=== PATIENT | male | born 1965 | race Caucasian/White ===

== ENCOUNTER 2021-02-04 21:32 | Emergency (ER) | payer OTHER ==
[~2021-02-04] VITALS: Ht 177.8 cm; Wt 109.0 kg
--- NOTE | 2021-02-04 21:37 | PHYS DOC ---
Past History Past Medical History: Bronchitis General Adult EDM: Chief Complaint: NOSEBLEED HPI: HPI: ". I got this nose bled.. it just does not want to stop...".. I ve been fighting some bronchitis. and got to coughing and then this nose bleed.. 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 Nose has been bleeding The patient follows with Dr. Carpenter. No history of previous nosebleeds. Does have a history of hypertension. Has had a recent episode of bronchitis and currently on doxycycline. Patient appears to be bleeding from the [place] area on the left nare. Patient has not had COVID vaccination. No recent travel. No specific ill contacts. Review of Systems: Review of Systems: Constitutional: Denies fever or chills Eyes: Denies change in visual acuity HENT: Denies nasal congestion or sore throat. Complains of epistaxis Respiratory: Denies cough or shortness of breath Cardiovascular: Denies chest pain or edema GI: Denies abdominal pain, nausea, vomiting, bloody stools or diarrhea : Denies dysuria Musculoskeletal: Denies back pain or joint pain Integument: Denies rash Neurologic: Denies headache, focal weakness or sensory changes Endocrine: Denies polyuria or polydipsia Lymphatic: Denies swollen glands Psychiatric: Denies depression or anxiety Family History: Family History: Noncontributory to presentation Current Medications: Current Meds: See nursing for home meds Allergies: Allergies: No known drug allergies Physical Exam: PE: Constitutional: Well developed, well nourished, no acute distress, non-toxic appearance. [] HENT: Normocephalic, atraumatic, bilateral external ears normal, oropharynx moist, blood clots back of throat, no oral exudates, nose active bleeding in left naris at the capsule back slight. Postnasal bleeding and drainage into pharynx. Eyes: PERRLA, EOMI, conjunctiva normal, no discharge. Glasses Neck: Normal range of motion, no tenderness, supple, no stridor. [] Cardiovascular:Heart rate regular rhythm, no murmur [] Lungs & Thorax: Bilateral breath sounds equal at apex auscultation [] Abdomen: Bowel sounds normal, soft, no tenderness, no masses, no pulsatile masses. [] Skin: Warm, dry, no erythema, no rash. [] Back: No tenderness, no CVA tenderness. [] Extremities: No tenderness, no cyanosis, no clubbing, ROM intact, no edema. [] Neurologic: Alert and oriented X 3, normal motor function, normal sensory funct ion, no focal deficits noted. [] Psychologic: Affect normal, judgement normal, mood normal. [] EKG: EKG: [] Radiology/Procedures: Radiology/Procedures: [] Heart Score: C/O Chest Pain: N/A Risk Factors: Risk Factors: DM, Current or recent (<one month) smoker, HTN, HLP, family history of CAD, obesity. Risk Scores: Score 0 - 3: 2.5% MACE over next 6 weeks - Discharge Home Score 4 - 6: 20.3% MACE over next 6 weeks - Admit for Clinical Observation Score 7 - 10: 72.7% MACE over next 6 weeks - Early Invasive Strategies Course & Med Decision Making: Course & Med Decision Making Pertinent Labs and Imaging studies reviewed. (See chart for details) Procedure note- right and left eft naris cleared by blowing out clots. Then application of equal mixture of Boris-Synephrine and cocaine spray to both nares. Application of bacitracin ointment to both nares. Currently appears to have adequate stasis. Will monitor for further breathing. Appear to have adequate hemostasis. Patient discharged home. Not to blow nose. May sniff. If rebleed will need nasal packing. Impression: 1. Acute Epistaxis 2. Hypertension [] Dragon Disclaimer: Lisette Disclaimer: This electronic medical record was generated, in whole or in part, using a voice recognition dictation system. Departure Departure: Referrals: PIERO CARPENTER (PCP) Lisette Disclaimer This chart was dictated in whole or in part using Voice Recognition software in a busy, high-work load, and often noisy Emergency Department environment. It may contain unintended and wholly unrecognized errors or omissions. MARGARITO CALLOWAY MD Feb 04, 2021 21:37
[2021-02-04] MEDS ORDERED: COCAINE 4% TOPICAL SOLUTION. TP ONE (22:30)
[2021-02-04] MEDS ORDERED: PHENYLEPHRINE 1% NASAL DROP 30ML BOTTLE. NS ONE (22:30)
[2021-02-04] MEDS ORDERED: cloNIDine HCL 0.1 MG TABLET PO ONE (22:30)
[2021-02-04] MEDS ORDERED: BACITRACIN ZINC TOPICAL OINT PACKET. TP ONE (22:30)
[2021-02-05 00:30] VITALS: BP 133/61
== END 2021-02-05 00:35 | disposition home or self-care (01) ==
LOC: ER 21:32
DX: R04.0 Epistaxis (principal); I10 Essential (primary) hypertension
CPT/HCPCS: 99285

== ENCOUNTER 2021-02-05 01:18 | Emergency (ER) | payer OTHER ==
[~2021-02-05] VITALS: Ht 177.8 cm; Wt 108.0 kg
--- NOTE | 2021-02-05 01:27 | PHYS DOC ---
Past History Past Medical History: Bronchitis Past Surgical History: Appendectomy, Other Additional Past Surgical Histo: mendoza shoulder surg (rotator cuff);mendoza carpal tunnel;wisdom teeth;back;rt kne Alcohol Use: Heavy General Adult HPI: HPI: ".. I got home.. and it was like the dam broke.. ''. I bent over to pet the dogs.. and it started bleeding again. 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 Patient seen earlier in the shift for epistaxis. Was discharged home however had rebleed while at home. Patient denies any history of excessive use of NSAIDs. No history of trauma. Has had a recent cold and been on antibiotics for bronchitis. Normally follows with Dr. Shawna Carpenter. Not had problems with non traumatic epistaxis in the past. No history of coagulopathy. No history of excessive NSAID use. Does have a history of hypertension not on antihypertensive meds Review of Systems: Review of Systems: Constitutional: Denies fever or chills Eyes: Denies change in visual acuity HENT: Denies nasal congestion or sore throat Respiratory: Denies cough or shortness of breath Cardiovascular: Denies chest pain or edema GI: Denies abdominal pain, nausea, vomiting, bloody stools or diarrhea : Denies dysuria Musculoskeletal: Denies back pain or joint pain Integument: Denies rash Neurologic: Denies headache, focal weakness or sensory changes Endocrine: Denies polyuria or polydipsia Lymphatic: Denies swollen glands Psychiatric: Denies depression or anxiety Family History: Family History: None contributory to presentation Current Medications: Current Meds: See nursing for home meds Allergies: Allergies: Allergies Coded Allergies Type Severity Reaction Last Updated Verified No Known Drug Allergies 02/04/21 No Physical Exam: PE: Constitutional: Well developed, well nourished, no acute distress, non-toxic appearance. [] HENT: Normocephalic, atraumatic, bilateral external ears normal, oropharynx moist, no oral exudates, nose normal. Bleeding from [place] area left nare. Eyes: PERRLA, EOMI, conjunctiva normal, no discharge. Glasses Neck: Normal range of motion, no tenderness, supple, no stridor. [] Cardiovascular:Heart rate regular rhythm, no murmur [] Lungs & Thorax: Bilateral breath sounds to apex few scattered wheezes auscultation [] Abdomen: Bowel sounds normal, soft, no tenderness, no masses, no pulsatile masses. [] Skin: Warm, dry, no erythema, no rash. No petechiae appreciated Back: No tenderness, no CVA tenderness. [] Extremities: No tenderness, no cyanosis, no clubbing, ROM intact, no edema. [] Neurologic: Alert and oriented X 3, normal motor function, normal sensory function, no focal deficits noted. [] Psychologic: Affect normal, judgement normal, mood normal. [] EKG: EKG: [] Radiology/Procedures: Radiology/Procedures: [] Heart Score: C/O Chest Pain: N/A Risk Factors: Risk Factors: DM, Current or recent (<one month) smoker, HTN, HLP, family history of CAD, obesity. Risk Scores: Score 0 - 3: 2.5% MACE over next 6 weeks - Discharge Home Score 4 - 6: 20.3% MACE over next 6 weeks - Admit for Clinical Observation Score 7 - 10: 72.7% MACE over next 6 weeks - Early Invasive Strategies Course & Med Decision Making: Course & Med Decision Making Pertinent Labs and Imaging studies reviewed. (See chart for details) Procedure note-patient cleared clots by blowing. Application of equal mixture of cocaine and Boris-Synephrine spray to both nares. Repeat application of mixture to left nare. Applications of antibiotic ointment to both naris. Instilled a Rhino packing 7.5 cm. Currently appears that the Epistaxis-has stabilized. No posterior bleeding currently appreciated. Patient to not bend over. Patient not blow nose. Patient may staff. Patient sleep with head elevated. No NSAIDs. Continue current antibiotics. Follow-up primary care. May remove packing and 72 hours. If further problems will need to follow-up with ENT. Return if any concerns. May take toxic Tylenol for discomfort. Patient aware clonidine patch until follow-up primary care and discussed need for possible daily hypertensive meds. Impression: 1. Epistaxis left naris [place] area 2. History of recent bronchitis 3. Hypertension [] Lisette Disclaimer: Lisette Disclaimer: This electronic medical record was generated, in whole or in part, using a voice recognition dictation system. Departure Departure: Referrals: SHAWNA CARPENTER (PCP) Lisette Disclaimer This chart was dictated in whole or in part using Voice Recognition software in a busy, high-work load, and often noisy Emergency Department environment. It may contain unintended and wholly unrecognized errors or omissions. MARGARITO CALLOWAY MD Feb 05, 2021 01:27
[2021-02-05] MEDS ORDERED: BACITRACIN ZINC TOPICAL OINT PACKET. TP ONE (01:34)
[2021-02-05] MEDS ORDERED: PHENYLEPHRINE 0.5% NASAL SPRAY 15ML BOTTLE. NS ONE (01:35)
[2021-02-05] MEDS ORDERED: cloNIDine TTS-2 1 PATCH PATCH TD ONE (01:45)
[2021-02-05] MEDS ORDERED: MUPIROCIN 2% TOPICAL OINTMENT 22GM TUBE. TP ONE (02:00)
[2021-02-05] MEDS ORDERED: PHENYLEPHRINE 1% NASAL DROP 30ML BOTTLE. NS ONE (02:00)
[2021-02-05] MEDS ORDERED: COCAINE 4% TOPICAL SOLUTION. TP ONE (02:00)
[2021-02-05 03:00] VITALS: BP 130/72
== END 2021-02-05 03:00 | disposition home or self-care (01) ==
LOC: ER 01:18
DX: R04.0 Epistaxis (principal); I10 Essential (primary) hypertension; F10.20 Alcohol dependence, uncomplicated; Y90.9 Presence of alcohol in blood, level not specified
CPT/HCPCS: 30901; 99284